=== PATIENT | female | born 1970 | race Caucasian/White ===

== ENCOUNTER 2025-03-21 06:56 | Inpatient (IN) | payer BC, MEDICARE ==
[2025-03-20 11:40] LABS: Hematocrit 44.3 % (36.0-46.0); Hemoglobin 14.7 g/dL (12.2-16.2); Mean Corpuscular Hemoglobin 27.3 pg (28.0-32.0); Mean Corpuscular Volume 82.7 fL (80.0-100.0); Nucleated Red Blood Cells % 0.1 %
[2025-03-20 11:43] LABS: INR 1.04 (0.9-1.15); Partial Thromboplastin Time 29.1 SEC (24.5-34.5); Prothrombin Time 11.0 sec (9.3-11.8)
[2025-03-20 11:51] LABS: Urine Protein, UAD Negative (Negative)
[2025-03-20 12:09] LABS: Alanine Aminotransferase 24 U/L (7-40); Albumin 4.4 g/dL (3.2-4.8); Alkaline Phosphatase 80 U/L (46-116); Anion Gap 8 (5-15); BUN/Creatinine Ratio 9.3 (10.0-20.0); Calcium 9.9 mg/dL (8.7-10.4); Chloride 102 mmol/L (98-107); Glucose 103 mg/dL (74-106); Sodium 143 mmol/L (136-145); Total Protein 7.5 g/dL (5.7-8.2)
[2025-03-20 12:10] LABS: Bilirubin, Total 0.5 mg/dL (0.2-1.0)
[2025-03-20 12:11] LABS: Blood Urea Nitrogen 8 mg/dL (9-23); Carbon Dioxide 33 mmol/L (20-31); Potassium 3.0 mmol/L (3.5-5.1)
[~2025-03-21] VITALS: Ht 165.1 cm
[2025-03-21] VITALS (23 sets, daily range): BP systolic 128–141; BP diastolic 74–77; PULSE 57–71; RESP 12–26; TEMP 97.4–97.8; O2SAT 76–98
[~2025-03-21 06:56] MED LIST: ALPR2TAB6 PO; AML5T PO; ARIP5TAB22 PO; BUSP15TA60 PO; ESCI1TAB37 PO; LISD30CA4 PO; MET50T PO; METF-370 PO; POTA-36 PO; TRAZ-228 PO; VALS160T6 PO
[2025-03-21] MEDS ORDERED: KETAMINE 50mg/ML 1ml syringe ONE (08:59)
[2025-03-21] MEDS ORDERED: SODIUM CHLORIDE LOCK 10 ML ONE (09:00)
[2025-03-21] MEDS ORDERED: MIDAZOLAM HCL 2MG/2ML 2ml VIAL (1mg/ml) ONE (09:00)
[2025-03-21] MEDS ORDERED: fentaNYL CITRATE 100 MCG/2 ML VL ONE (09:00)
[2025-03-21] MEDS ORDERED: ONDANSETRON HCL 4 MG/2 ML VIAL ONE (09:00)
[2025-03-21] MEDS ORDERED: ROCURONIUM 10MG/ML 10ML VIAL IV ONE (09:00)
[2025-03-21] MEDS ORDERED: PROPOFOL 10 MG/ML 20 ML IV ONE (09:00)
[2025-03-21] MEDS ORDERED: LIDOCAINE HCL 2% TOP JELLY 5ML TOP ONE (09:00)
[2025-03-21] MEDS ORDERED: LIDOCAINE 1% INJ PF 5ML AMP ONE (09:00)
[2025-03-21] MEDS: IOHEXOL 300 MG/ML 100ML BOTTLE IJ ONE (09:45)
--- NOTE | 2025-03-21 10:12 | DVHNC2 ---
Procedure - OPERATIVE REPORT Pre-op. Diagnosis: Renal Stone Obesity Post-op. Diagnosis: Same as pre-op diagnosis Operation: Extracorporeal Shockwave Lithotripsy Anesthesia: General Indications: Patient was found to have symptomatic Urolithiasis. Patient is here to undergo ESWL therapy. Informed Consent: The procedure was explained to the patient. It's risks include but not limited to infection, bleeding, and damage to the kidney. Patient fully understood and signed the consent. Other options such as watchful waiting, Ureteroscopy, Percutaneous surgery and open surgery were also discussed. Details of Procedure: Under satisfactory anesthesia, the patient was positioned on the lithotripsy table. Using fluoroscopy the stone was localized By giving IV contrast, the filling defect of the midpole stone was identified and location was placed onto the F2 focus. Starting at low energy levels, shockwave treatment was commenced. The energy level was gradually increased and stone was fragmented. Once the treatment was completed, patient was then taken off the lithotripsy table and sent to recovery room in stable condition. Specimens: None Complications: None Findings: Stone Laterality: right Stone Location: midpole 4-5 mm stone Shocks Delivered: 2000 Max Power settin Fragmentation Quality: Well AJAY SAHU MD Mar 21, 2025 10:11
--- NOTE | 2025-03-21 10:12 | DVHDS2 ---
New Physician D'charge PN Admitting Diagnosis Admitting Diagnosis Right nephrolithiasis Discharge Diagnosis Same Operations or Procedures Right ESWL Reason(s) For Hospitalization Surgery Treatment Plan Discharge Condition of Discharge Good Disposition Home Discharge Instructions Diet: Regular Activity: Light activity Medications: Given Follow Up Care Follow Up/Referral: Follow up two weeks Discharge Statement: "Patient was advised to return to the ER or call 911 if any headaches, dizziness, shortness of breath, chest pain, abdominal pain, bleeding, fevers, or worsening of medical condition. Patient was counseled about treatment plan, medications, possible side effects, patientverbalized understanding. All questions were answered to the best of my ability. This discharge took greater then 30 minutes in planning, reviewing documentation, counseling the patient, and discussing with other team members." AJAY SAHU MD Mar 21, 2025 10:12
[2025-03-21] MEDS: EPINEPHrine HCL 0.5 ML NEB NEB STA (11:14)
[2025-03-21] MEDS: ALBUTEROL SULF 2.5 MG/0.5ML(0.5%) NEB SOLN NEB STA (11:14)
[2025-03-21] MEDS: IPRATROPIUM BROM 0.5 MG/2.5ML INH SOL NEB STA (11:15)
[2025-03-21] MEDS ORDERED: ALPRAZolam 0.5 MG TAB PO PRN (14:00)
[2025-03-21] MEDS ORDERED: ONDANSETRON HCL 4 MG/2 ML VIAL IV PRN (14:00)
[2025-03-21] MEDS ORDERED: MORPHINE SULFATE INJ 2 MG/ml SYRG IV PRN ×2 (14:00)
[2025-03-21] MEDS ORDERED: HYDROcodone-ACET 5/325MG TAB PO PRN (14:00)
[2025-03-21] MEDS ORDERED: NITROGLYCERIN 0.4 MG SL TAB SL PRN ×2 (14:00)
[2025-03-21] MEDS ORDERED: ACETAMINOPHEN 325 MG TAB PO PRN (14:00)
--- NOTE | 2025-03-21 14:49 | DVHHP ---
ADMIT DATE: 03/21/2025 HISTORY OF PRESENT ILLNESS: The patient is a 54-year-old lady who had come for a lithotripsy of a renal stone, but subsequently postoperatively developed increasing shortness of breath with stridor. The patient was given racemic epi as well as oxygen with subsequent improvement in the symptoms. The patient denies any chest pain, no nausea or vomiting. No history of any cough. No chest pain. The patient does have swelling of lower extremities. REVIEW OF SYSTEMS: Review of rest systems otherwise currently negative. PAST MEDICAL HISTORY: Significant for chronic respiratory failure on home oxygen especially at night, diabetes, hypertension as well as depression/anxiety. MEDICATIONS: Include metformin, Xanax, buspirone, ____, amlodipine, Diovan, hydrochlorothiazide. ALLERGIES: TO AMOXICILLIN, ERYTHROMYCIN, AND PENICILLIN. SOCIAL HISTORY: Denies smoking or alcohol. Lives at home with her . FAMILY HISTORY: Negative. PHYSICAL EXAMINATION: GENERAL: The patient is awake and alert. VITAL SIGNS: Temperature of 98.6, pulse 60 per minute, blood pressure 160/81. SHEENT: Unremarkable. There is pedal edema of 2+. LUNGS: Diminished bilaterally. CARDIOVASCULAR: S1 and S2 is regular. ABDOMEN: Soft. There is no organomegaly. NEUROLOGIC: Nonfocal. MUSCULOSKELETAL: Normal. ASSESSMENT AND PLAN: * Acute on chronic respiratory failure for which a chest x-ray will be obtained. * Acute systolic/diastolic heart failure. The patient will have an echocardiogram done and will be placed on diuretics. * Asthma. * Diabetes mellitus. She will be placed on sliding scale insulin. * Hypertension. * Anxiety/depression. * Morbid obesity. * Sleep apnea. MD NAVDEEP Enciso/TAN/ABIGAIL TID: [id number] RECEIPT: [id number]
[2025-03-21] MEDS: CIPROFLOXACIN 400MG/200ML 200 ML IV ONE (17:03)
[2025-03-21] MEDS: EPINEPHrine HCL 0.5 ML NEB ONE (17:03)
[2025-03-21] MEDS: FUROSEMIDE 20 MG/2 ML VIAL IV ONE (17:25)
[2025-03-22] VITALS (8 sets, daily range): BP systolic 144–155; BP diastolic 78–85; PULSE 59–68; RESP 18–20; TEMP 36.4; O2SAT 91–98
--- NOTE | 2025-03-22 09:49 | DVHSR ---
APPROVED REPORT EXAM: Two-dimensional and M-mode echocardiogram with Doppler and color Doppler. Blood Pressure: 157/82 mmHg INDICATION Heart Failure RISK FACTORS Height: 5'5", Weight: 280 DIMENSIONS LVDd5.1 (3.8-5.7cm)LA (2D)3.7 (1.9-4.0cm)Aortic Root2.9 (2.0-3.7cm) LVDs3.4 (2.5-4.0cm)LA (MM) (1.9-4.0cm)Aortic Cusp Exc1.6 (1.5-2.0cm) EF (%) 61.0 (55-70%)Rt. Atrium4.1 (1.9-4.0cm)Asc. Aorta3.0 cm IVSd1.0 (0.7-1.1cm)RV (D) (1.8-2.4cm) PWd1.1 (0.7-1.1cm) Mitral Valve MitralMitral Stenosis E wave1.01m/sMV Mean GR.mmHg A wave0.94m/sMV Peak GR.mmHg E/A ratio1.12D MVAcm2 DECEL [id number] 1/2 Timems Aortic Valve Aortic ValveAortic Stenosis V11.22m/Hitesh Mean GR.8mmHg V21.77m/Hitesh Peak GR.13mmHg LVOT Diameter1.8 (1.8-2.4cm)Doppler AVA1.75cm2 Pulmonic Valve V21.07m/s Tricuspid Valve TR Velocity2.71m/s [id number] Other Information Quality : Technically LimitedRhythm : Technically limited study due to body habitus and patient sitting up. Conclusion LV EF IS 65% NORMAL VALVES NO EFFUSION NORMAL RV FUNCTION AND SIZE MILD PULMONARY HYPERTENSION RVSP IS 37 MM OF HG AND IS BORDERLINE ELEVATED
[2025-03-22] MEDS: CITALOPRAM HYDROBR 20 MG TAB PO SCH (09:51)
[2025-03-22] MEDS: VALSARTAN 80 MG TAB PO SCH (10:03)
--- NOTE | 2025-03-22 13:13 | DVHDS2 ---
Discharge Summary Date of Admission Mar 21, 2025 at 13:56 Date of Discharge: Mar 22, 2025 Labs/Diagnostic Data: Laboratory Results Test 03/22/25 04:57 03/20/25 10:41 POC Glucose 144 mg/dl (70-106) White Blood Count 7.8 10^3/uL (4.4-10.8) Red Blood Count 5.36 10^6/uL (4.0-5.20) Hemoglobin 14.7 g/dL (12.2-16.2) Hematocrit 44.3 % (36.0-46.0) Mean Corpuscular Volume 82.7 fL (80.0-100.0) Mean Corpuscular Hemoglobin 27.3 pg (28.0-32.0) Mean Corpuscular Hemoglobin Concent 33.1 g/dL (32.0-36.0) Red Cell Distribution Width 16.4 % (11.8-14.3) Platelet Count 383 10^3/uL (140-450) Mean Platelet Volume 7.6 fL (6.9-10.8) Neutrophils (%) (Auto) 64.4 % (37.0-80.0) Lymphocytes (%) (Auto) 24.0 % (10.0-50.0) Monocytes (%) (Auto) 7.6 % (0.0-12.0) Eosinophils (%) (Auto) 2.8 % (0.0-7.0) Basophils (%) (Auto) 1.2 % (0.0-2.0) Neutrophils # (Auto) 5.0 10 ^3/uL (1.6-8.6) Lymphocytes # (Auto) 1.9 10 ^3/uL (0.4-5.4) Monocytes # (Auto) 0.6 10 ^3/uL (0-1.3) Eosinophils # (Auto) 0.2 10 ^3/uL (0-0.8) Basophils # (Auto) 0.1 10 ^3/uL (0-0.2) Nucleated Red Blood Cells 0.1 % Prothrombin Time 11.0 sec (9.3-11.8) Prothrombin Time INR 1.04 (0.9-1.15) Activated Partial Thromboplast Time 29.1 SEC (24.5-34.5) Urine Color Light-yellow (Yellow) Urine Clarity Clear (Clear) Urine pH 6.5 (5.0-9.0) Urine Specific [place] 1.011 (1.001-1.035) Urine Protein Negative (Negative) Urine Ketones Negative (Negative) Urine Blood Trace /uL (Negative) Urine Nitrite Negative (Negative) Urine Bilirubin Negative (Negative) Urine Urobilinogen Normal mg/dL (Negative) Urine Leukocyte Esterase 1+ /uL (Negative) Urine RBC 8 /hpf (0 - 4) Urine Microscopic WBC 6 /HPF (0-5) Urine Squamous Epithelial Cells Few /hpf (<5) Urine Bacteria Few /hpf (None Seen) Urine Glucose Normal mg/dL (Normal) Sodium Level 143 mmol/L (136-145) Potassium Level 3.0 mmol/L (3.5-5.1) Chloride Level 102 mmol/L (98-107) Carbon Dioxide Level 33 mmol/L (20-31) Anion Gap 8 (5-15) Blood Urea Nitrogen 8 mg/dL (9-23) Creatinine 0.86 mg/dL (0.550-1.02) Glomerular Filtration Rate Calc 79 mL/min (>90) BUN/Creatinine Ratio 9.3 (10.0-20.0) Serum Glucose 103 mg/dL (74-106) Calcium Level 9.9 mg/dL (8.7-10.4) Total Bilirubin 0.5 mg/dL (0.2-1.0) Aspartate Amino Transferase (AST) 31 U/L (13-40) Alanine Aminotransferase (ALT) 24 U/L (7-40) Alkaline Phosphatase 80 U/L (46-116) Total Protein 7.5 g/dL (5.7-8.2) Albumin 4.4 g/dL (3.2-4.8) Other Laboratory Tests 03/20/25 10:41 Brief Hx & Hospital Course: see dictated note Condition at Discharge: Good Final Diagnosis/Problems List CHF Discharge Disposition: Home Discharge Instruct/Medications Diet: Cardiac 2g Na,low cholest Activity: No Restrictions, As Tolerated Follow Up/Referral: Follow up PCP Medications: resume home meds Scheduled Alprazolam (Alprazolam), 1 TAB PO BID, (Reported) Amlodipine Besylate (Norvasc Tablet), 10 MG PO DAILY, (Reported) Aripiprazole (Aripiprazole), 5 MG PO DAILY, (Reported) Buspirone Hcl (Buspirone Hcl), 1 TAB PO BID, (Reported) Escitalopram Oxalate (Escitalopram Oxalate), 1 TAB PO DAILY, (Reported) Lisdexamfetamine Dimesylate (Vyvanse), 1 CAP PO QAM, (Reported) Metformin Hydrochloride (Metformin Hcl), 1 TAB PO BID, (Reported) Metoprolol Tartrate (Lopressor Tablet), 1 TAB PO BID, (Reported) Potassium Chloride (Potassium Chloride Cr), 1 TAB PO DAILY, (Reported) Trazodone Hcl (Trazodone Hcl), 1 TAB PO QPM, (Reported) Valsartan-Hydrochlorothiazide (Diovan Hct), 1 TAB PO DAILY, (Reported) Discharge Statement: "Patient was advised to return to the ER or call 911 if any headaches, dizziness, shortness of breath, chest pain, abdominal pain, bleeding, fevers, or worsening of medical condition. Patient was counseled about treatment plan, medications, possible side effects, patientverbalized understanding. All questions were answered to the best of my ability. This discharge took greater then 30 minutes in planning, reviewing documentation, counseling the patient, and discussing with other team members." ASSESSMENT ASSESSMENT Assessment CHF Date of Service: Mar 22, 2025 Billing Provider: ARYA SHEA MD Common Visit Codes: 87595-CJU/OBS DISCH DAY >30min ARYA SHEA MD Mar 22, 2025 13:13
--- NOTE | 2025-03-22 13:58 | DVHDS ---
DATE OF DISCHARGE: 03/22/2025 HISTORY OF PRESENT ILLNESS: The patient is a 54-year-old lady who was admitted after she had acute shortness of breath after she underwent lithotripsy. The patient has a history of chronic respiratory failure, diabetes, hypertension, obesity, depression, anxiety, as well as sleep apnea. HOSPITAL COURSE: The patient had evidence of fluid overload. The patient was placed on diuretics. Her CBC was within normal limits. The patient's blood pressure is currently stable and she wishes to go home. The patient will be discharged to resume her home medications and follow up with her primary in 1 week. FINAL DIAGNOSES: * Acute on chronic respiratory failure. * Likely, acute diastolic heart failure. * Asthma. * Diabetes mellitus. * Hypertension. * Morbid obesity. * Anxiety/depression. * Sleep apnea. * Status post lithotripsy for renal calculus. Time spent in discharge planning and review of plan with the patient and nursing was 37 minutes. MD NAVDEEP Enciso/TARIK TID: [id number] RECEIPT: [id number]
--- NOTE | 2025-03-22 15:28 | CONS ---
Pharmacy Clinical Information: CHF FALL OUT From Heart Failure Fallout Report on CQM Application, JACQUELYN CASTANEDA, 54F with PMH of HTN, T2DM, depression/anxiety, and chronic respiratory failure on home oxygen Patient may benefit from a statin (lipid lowering drug) since she has T2DM. Her home medication list doesnt have any lipid lowering drug. Her LDL level is not known. Per 2018 AHA/ACC Guideline on the Management of Blood Cholesterol for patient who has diabetes and age 40-75y, should at least be on a moderate- intensity statin. Please restart metformin at discharged. [facility] Mar 22, 2025 15:28
== END 2025-03-22 17:08 | disposition home or self-care (01) | DRG 693 ==
LOC: SUR 06:56 → OVERFLOW 13:56 → TELE-WESTW 15:54
PROVIDERS: ADMIT Internal Medicine; ATTEND Internal Medicine
PROC: 5A09357 Assistance with Respiratory Ventilation, Less than 24 Consecutive Hours, Continuous Positive Airway Pressure (ICD-10-PCS; 2025-03-21)
PROC: 0TC68ZZ Extirpation of Matter from Right Ureter, Via Natural or Artificial Opening Endoscopic (ICD-10-PCS; principal; 2025-03-21 09:18)
DX: N20.0 Calculus of kidney (principal); I50.41 Acute combined systolic (congestive) and diastolic (congestive) heart failure; J96.20 Acute and chronic respiratory failure, unspecified whether with hypoxia or hypercapnia; Z68.42 Body mass index [BMI] 45.0-49.9, adult; I11.0 Hypertensive heart disease with heart failure; Z99.81 Dependence on supplemental oxygen; E11.9 Type 2 diabetes mellitus without complications; J45.909 Unspecified asthma, uncomplicated; E66.01 Morbid (severe) obesity due to excess calories; F32.A Depression, unspecified; G47.30 Sleep apnea, unspecified; F41.9 Anxiety disorder, unspecified; Z88.0 Allergy status to penicillin
CPT/HCPCS: 36415; 80053; 81001; 82962; 85025; 85610; 85730; 93306; 94640; 94660; A4344; G0378; J2250; J2405; J2704